=== PATIENT | female | born 1995 | race African-American/Black ===

== ENCOUNTER 2017-03-24 10:03 | Emergency (ER) | payer BC ==
[2017-03-24 11:06] LABS: #Basophils 0.1 thou/uL (0.0-0.2); #Eosinphils 0.4 thou/uL (0.0-0.7); #Lymphocytes 1.4 thou/uL (1.20-3.40); #Monocytes 0.5 thou/uL (0.11-0.59); #Neutrophils 6.4 thou/uL (1.40-6.50); %Basophils 1.3 % (0.0-1.0); %Eosinophils 4.9 % (0.0-10.0); %Lymphocytes 15.5 % (21.0-51.0); %Monocytes 5.5 % (0.0-10.0); Hematocrit 39.8 % (36.0-47.0); Mean Platelet Volume 10.1 fL (7.4-10.4); Red Blood Cell (RBC) Count 5.52 mill/uL (4.20-5.40); White Blood Cell (WBC) Count 8.8 thou/uL (4.8-10.8)
[2017-03-24 11:09] LABS: Bacteria/HPF None Seen HPF (None Seen); Bilirubin Negative (Negative); Blood, Urine Small (Negative); Glucose, Urine (Dipstick) Negative (Negative); Hyaline Casts/LPF 0-3 HYALINE CAST LPF (0-3 Hyaline); Ketone, Urine 15 mg/dL (Negative); Nitrite Negative (Negative); Protein, Urine (Dipstick) Trace mg/dL (Neg-Trace); Squamous Epithelial None Seen HPF (0-3); Urobilinogen 0.2 mg/dL (0.2-1.0); WBC/HPF None Seen HPF (0-3)
--- NOTE | 2017-03-24 14:15 | ULT ---
OB ULTRASOUND: Date: 03/24/17 HISTORY: Patient is approximately 13 weeks and has had some vaginal bleeding. FINDINGS: Real-time imaging of the pelvis shows a single viable intrauterine in a breech presentation . The placenta is anterior in location without evidence of previa. The heart rate is 150 beats/ minute. measurements are as follows: BPD: 2.5 cm, 14 weeks/1 day HC: 9.3 cm, 14 weeks/2 days AC: 7.1 cm, 13 weeks/5 days FL: 1.1 cm, 13 weeks/2 days The right adnexa is unremarkable in appearance. The left ovary is not well visualized. Cervical canal is not well visualized on this exam. Amniotic fluid is adequate for this stage of . IMPRESSION: 1. Single viable intrauterine . Overall measurements corresponding to a gestational age of 13 weeks/6 days. Estimated date of delivery 09/23/17. 2. Placenta which is anterior in location without evidence of previa. No abnormalities are detected. POS: [facility]
== END 2017-03-24 13:23 | disposition home or self-care (01) ==
LOC: ERS 10:03
DX: O20.9 Hemorrhage in early pregnancy, unspecified (principal)
CPT/HCPCS: 36415; 76815; 81003; 81015; 84702; 85025; 87086

== ENCOUNTER 2017-05-03 14:33 | Outpatient (CLI) | payer BC ==
--- NOTE | 2017-05-03 19:04 | ULT ---
COMPLETE OB ULTRASOUND: 05/03/17 HISTORY: 22-year-old female for incidental state for initial evaluation for size and dates and anatomy. Single viable intrauterine fetus is noted in cephalic presentation. Placenta is anterior. Cervical le ngth 3.7 cm. heart rate 145 beats per minute. Amniotic fluid is within normal limits. ANATOMY: Visualized brain, four chamber heart, three vessel cord, stomach, bladder, kidney and spine reg ions are unremarkable. lips and nose were not adequately seen. BIOMETRY: BPD 4.5 cm - - 19 weeks, 5 days. Head circumference 16.3 cm - - 19 weeks, 0 days Abdominal circumference 13.6 cm - - 19 weeks, 0 days Femur length 2.8 cm - - 18 weeks, 5 days IMPRESSION: Single viable intrauterine fetus at 19 weeks, 0 days. EDC 09/27/17. Estimated weight 264 grams. Gestational age by LMP 19 weeks, 0 days. EDC by LMP 09/27/17. The posterior fossa and patient's face and nose and lips regions were less than optimally imaged for anatomy purposes. POS: [facility]
== END 2017-05-03 14:34 | disposition home or self-care (01) ==
LOC: ULT 14:33
PROVIDERS: ATTEND Family Medicine
DX: Z33.1 Pregnant state, incidental (principal); Z3A.19 19 weeks gestation of pregnancy
CPT/HCPCS: 76805

== ENCOUNTER 2017-10-02 19:40 | Inpatient (IN) | payer BC ==
[2017-10-02 20:05] VITALS: BMI 27.4
[2017-10-02] MEDS ORDERED: Promethazine HCl 25 MG/ML VIAL IM PRN (21:04)
[2017-10-02] MEDS ORDERED: Ondansetron HCl/PF 4 MG/2 ML Vial IVP PRN (21:04)
[2017-10-02] MEDS ORDERED: Acetaminophen 500 MG TAB PO PRN (21:04)
[2017-10-02] MEDS ORDERED: Lactated Ringer's 1,000 ML IV PRN (21:06)
[2017-10-02] MEDS ORDERED: Penicillin G Potassium 5 MILL.UNITS VIAL ONE (21:11)
[2017-10-02] MEDS ORDERED: Penicillin G Potassium 5 MILL.UNITS in Sodium Chloride 0.9% 100 ML IVPB SCH (21:15)
[2017-10-02 21:51] LABS: Hemoglobin 12.9 g/dL (12.0-16.0); Mean Corpuscular Hemoglobin 25.1 pg (27.0-31.0); Mean Corpuscular Volume 75.9 fl (81.0-99.0); Mean Platelet Volume 10.2 fL (7.4-10.4); Platelet Count 200 thou/uL (130-400); RBC Distribution Width 17.4 % (11.5-14.5); Red Blood Cell (RBC) Count 5.14 mill/uL (4.20-5.40); White Blood Cell (WBC) Count 12.7 thou/uL (4.8-10.8)
[2017-10-02 22:47] LABS: Syphilis Antibody Nonreactive (Nonreactive); Syphilis Antibody Index 0.06 S/CO (<1.00 Non-Reactive)
[2017-10-03] MEDS ORDERED: NS / Oxytocin 40 units/1000ml 1,000 ML ONE (00:16)
[2017-10-03] MEDS ORDERED: Carboprost 250 MCG/ML AMP ONE (00:17)
[2017-10-03] MEDS ORDERED: Misoprostol 200 MCG TAB ONE (00:17)
[2017-10-03] MEDS ORDERED: Penicillin G 2.5 MILL.units 2.5 MILL.UNITS in Premix Bag 1 BAG IVPB SCH (01:00)
[2017-10-03 01:02] LABS: ALT (SGPT) 13 U/L (8-55); AST (SGOT) 25 U/L (5-34); Albumin 3.8 g/dL (3.5-5.0); Alkaline Phosphatase 214 U/L (40-150); Anion Gap 19 mmol/L (10-20); BUN (Urea Nitrogen) 9 mg/dL (7.0-18.7); Bilirubin, Total 0.3 mg/dL (0.2-1.2); Calc. Creatinine Clearance 150 mL/min (70-130); Calcium 9.9 mg/dL (7.8-10.44); Carbon Dioxide 19 mmol/L (22-29); Chloride 104 mmol/L (98-107); Estimated GFR-MDRD Greater than 90; Globulin 3.3 g/dL (2.4-3.5); Glucose 73 mg/dL (70-105); Potassium 4.5 mmol/L (3.5-5.1); Protein, Total 7.1 g/dL (6.0-8.3); Sodium 137 mmol/L (136-145)
[2017-10-03 01:37] LABS: HBSAg Index 0.17 S/CO (0-0.99); Hep B Surf Ag Non-Reactive S/CO (NonReactive)
[2017-10-03] MEDS ORDERED: Lanolin Ointment 7 GM TUBE TOP PRN (02:32)
[2017-10-03] MEDS ORDERED: NS / Oxytocin 40 units/1000ml 1,000 ML IV SCH (02:32)
[2017-10-03] MEDS ORDERED: Benzocaine/Menthol 20-0.5% 60 ML CAN TOP PRN (02:32)
[2017-10-03] MEDS ORDERED: Bisacodyl 10 MG SUPP PR PRN (02:32)
[2017-10-03] MEDS ORDERED: Milk Of Magnesia 30 ML UDCUP PO PRN (02:32)
[2017-10-03] MEDS ORDERED: HYDROcodone/Acetaminophen 5/325 mg Tablet PO PRN (02:32)
[2017-10-03] MEDS ORDERED: Preparation H Ointment 28 GM TUBE PR PRN (02:32)
[2017-10-03] MEDS ORDERED: Ondansetron HCl/PF 4 MG/2 ML Vial IVP PRN (02:32)
[2017-10-03] MEDS ORDERED: Acetaminophen/Codeine 30-300mg Tablet PO PRN (02:32)
[2017-10-03] MEDS: Ibuprofen 800 MG TAB PO SCH ×3 (05:18→20:58)
[2017-10-03 06:08] LABS: Mean Corpuscular Hemoglobin 24.3 pg (27.0-31.0); Mean Corpuscular Volume 75.8 fl (81.0-99.0); Mean Platelet Volume 9.5 fL (7.4-10.4); Platelet Count 174 thou/uL (130-400); RBC Distribution Width 16.9 % (11.5-14.5); Red Blood Cell (RBC) Count 3.69 mill/uL (4.20-5.40); White Blood Cell (WBC) Count 19.5 thou/uL (4.8-10.8)
[2017-10-03] MEDS: Ferrous Sulfate 325 MG TAB PO SCH ×2 (09:00→16:42)
[2017-10-03] MEDS: Docusate Calcium (SURFAK) 240 MG CAP PO SCH ×2 (09:00→20:58)
[2017-10-03] MEDS: Prenatal Vitamin 1 TAB PO SCH (09:00)
[2017-10-04] MEDS: Ibuprofen 800 MG TAB PO SCH ×2 (06:24→14:15)
[2017-10-04 08:37] VITALS: TEMP 98.1
[2017-10-04] MEDS: Ferrous Sulfate 325 MG TAB PO SCH (09:02)
[2017-10-04] MEDS: Docusate Calcium (SURFAK) 240 MG CAP PO SCH (09:02)
[2017-10-04] MEDS: Prenatal Vitamin 1 TAB PO SCH (09:03)
--- NOTE | 2017-10-04 12:18 | PDOC.PP ---
Post Progress Note Post Day #: 1 Subjective: No complaints, well, lochia normal. PO intake tolerated: yes Flatus: yes Ambulation: yes Vital Signs (12 hours) Temp Pulse Resp BP 10/04/17 08:34 98.1 F 87 20 109/63 10/04/17 08:20 98.1 F 87 20 Weight Weight 170 lb - Physical Examination General: NAD Cardiovascular: no m/r/g, RRR Respiratory: clear to auscultation bilaterally, non-labored breathing Abdominal: + bowel sounds, lochia, no distention, appropriately TTP Result Diagrams: 10/03/17 05:22 10/02/17 21:46 Additional Labs: Post Labs Blood Type B POSITIVE 10/02/17 21:46 Hep Bs Antigen Non-Reactive S/CO (NonReactive) 10/02/17 21:46 (1) Vaginal delivery Code(s): O80 - ENCOUNTER FOR FULL-TERM UNCOMPLICATED DELIVERY Status: Acute - Assessment/Plan PPD #1 Routine PP care D/C home F/U in 6 weeks.
[2017-10-04 14:59] VITALS: BP 115/72
== END 2017-10-04 14:38 | disposition home or self-care (01) | DRG 775 ==
LOC: L&D/OP 19:40 → L&D 10-03 00:19 → 3SW 10-03 02:31
PROVIDERS: ADMIT Family Medicine; ATTEND Family Medicine
PROC: 10E0XZZ Delivery of Products of Conception, External Approach (ICD-10-PCS; principal; 2017-10-03)
PROC: 0HQ9XZZ Repair Perineum Skin, External Approach (ICD-10-PCS; 2017-10-03)
DX: O48.0 Post-term pregnancy (principal); O70.0 First degree perineal laceration during delivery; O13.4 Gestational [pregnancy-induced] hypertension without significant proteinuria, complicating childbirth; Z3A.41 41 weeks gestation of pregnancy; Z37.0 Single live birth
CPT/HCPCS: 36415; 80053; 81003; 85027; 86780; 86850; 86900; 86901; 87340; 99285; J2540; J3490